=== PATIENT | male | born 2000 | race African-American/Black ===

== ENCOUNTER 2023-09-26 12:26 | Outpatient (REF) | payer MEDICAID, SELFPAY ==
[2023-09-30 14:03] LABS: RPR Rapid Plasma Reagin NON-REACTIVE (NON-REACTIVE)
== END 2023-09-26 12:27 | disposition home or self-care (01) ==
LOC: HO.HHCL 12:26
PROVIDERS: Visit Provider Family Medicine
DX: Z00.00 Encounter for general adult medical examination without abnormal findings (principal); Z11.3 Encounter for screening for infections with a predominantly sexual mode of transmission; Z11.59 Encounter for screening for other viral diseases; Z13.220 Encounter for screening for lipoid disorders; Z13.29 Encounter for screening for other suspected endocrine disorder; Z13.1 Encounter for screening for diabetes mellitus
CPT/HCPCS: 0353U; 36415; 80048; 80061; 80076; 82306; 83036; 84439; 84443; 85027; 86592; 86706; 86803; 87340; 87389

== ENCOUNTER 2024-05-29 13:57 | Outpatient (REF) | payer MEDICAID, SELFPAY ==
[2024-05-29 16:23] LABS: Hematocrit 48.3 % (42.0-52.0); Mean Corpuscular HGB Conc 31.1 g/dl (31.0-36.0); Mean Corpuscular Hemoglobin 25.5 pg (27.0-33.0); Mean Corpuscular Volume 82.1 fL (80.0-98.0); Mean Platelet Volume 10.2 fL (9.4-12.4); Platelet Count 269 X10*3/uL (160-400); Red Blood Count 5.88 X10*6/uL (4.60-5.80); Red Cell Distribution Width 14.6 % (11.0-16.0); White Blood Count 5.8 X10*3/uL (4.8-10.8)
[2024-05-29 16:42] LABS: Anion Gap 11 (12-20)
[2024-05-29 16:46] LABS: Alanine Aminotransferase 31 U/L (0-40); Albumin Level 4.1 g/dL (3.5-5.0); Alkaline Phosphatase 78 U/L (39-117); Aspartate Amino Transferase 25 U/L (5-37); Bilirubin Direct 0.1 mg/dL (0.0-0.5); Bilirubin Total 0.3 mg/dL (0.0-1.0); Blood Urea Nitrogen 8 mg/dL (9-16); Calcium 9.6 mg/dL (8.4-10.2); Carbon Dioxide 25 mmol/L (22-29); Chloride 105 mmol/L (96-108); Cholesterol 142 mg/dL (<200); Estimated Glomerular Filt Rate > 60; Glucose Random 106 mg/dL (60-115); HDL Cholesterol 40 mg/dL (>40); LDL Cholesterol Calculated 72 mg/dL (<100); Lipase 19 U/L (8-78); Sodium 137 mmol/L (135-145); Total Protein 7.8 g/dL (6.5-8.0); Triglycerides 153 mg/dL (<150)
[2024-05-29 16:58] LABS: Amylase 74 U/L (28-100); Estimated Average Glucose 117 mg/dL; Free T4 (Free Thyroxine) 0.85 ng/dL (0.71-1.85); Hemoglobin A1c % 5.7 % (<6.0); Thyroid Stimulating Hormone 2.04 uIU/mL (0.32-4.0); Vitamin D 25-OH Total 36.1 ng/mL (>30)
[2024-05-30 07:28] LABS: Hepatitis A Antibody IgG REACTIVE (Nonreactive); ~Hepatitis A Antibody IgG 11.77 S/CO (0.00-0.99)
[2024-05-30 07:35] LABS: HBc Num1 0.15 S/CO (0.00-0.79); HBsAGNum1 0.25 S/CO (0.00-0.99); HIV AB/AG Nonreactive (Nonreactive); HIV Num 1 0.07 S/CO (0.00-0.99); Hepatitis B Core Antibody Nonreactive (Nonreactive); Hepatitis B Surface Antigen Negative (Negative); ~HepC Num1 0.15 S/CO (0.00-0.79); ~Hepatitis C Antibody Nonreactive (Nonreactive)
[2024-05-30 08:34] LABS: HBS Num2 8.79 mIU/mL (0-7.99); HBS Num3 9.49 mIU/mL (0-7.99); ~Hepatitis B Surface Antibody GRAYZONE (Nonreactive)
[2024-06-01 12:39] LABS: RPR Rapid Plasma Reagin NON-REACTIVE (NON-REACTIVE)
== END 2024-05-29 13:58 | disposition home or self-care (01) ==
LOC: HO.HHCL 13:57
PROVIDERS: Visit Provider Family Medicine
DX: R10.9 Unspecified abdominal pain (principal); R12 Heartburn
CPT/HCPCS: 36415; 80048; 80061; 80076; 82150; 82306; 83036; 83690; 84439; 84443; 85027; 86592; 86704; 86706; 86708; 86803; 87340; 87389

== ENCOUNTER 2025-01-15 11:39 | Outpatient (REF) | payer MEDICAID, SELFPAY ==
--- OUTSIDE RECORDS SUMMARY | 2025-01-15 12:36 | XMS_ITS | Encounter Summary ---
Author Organization [employer] Address [address] [facility] 7t [place] [address] Care Team Providers Care Traveling Sales Representative Name Role Phone KarinaMarilia Primary Care Provider +1 [phone] James Mcghee Unavailable Unavailable Encounter Details Date Type Department Care Team (Latest Contact Info) Description 01/15/2025 Travel Social History Tobacco Use Types Packs/Day Years Used Date Smoking Tobacco: Never Passive Smoke Exposure: Never Smokeless Tobacco: Never Alcohol Use Standard Drinks/Week Comments Never 0 (1 standard drink = 0.6 oz pur e alcohol) Depression Answer Date Recorded Patient Health Questionnaire-9 Score 5 01/15/2025 Patient Health Questionnaire-9 Score 5 01/15/2025 Last PHQ-9: Questionnaire Data Not on file 0 01/15/2025 Housing Stability Answer Date Recorded What is your housing situation today? I have cristel sing 01/05/[address] you li ve. Do you have problems with any of the following? None of the above 01/05/2025 Food Insecurity Answer Date Recorded Within the past 12 months, y ou worried that your food would run out before you got money to buy more: Never True 01/05/2025 Within the past 12 months,th e food you bought just didn't last and you didn't have enough money to get more: Never True Transportation Answer Date Recorded In the past 12 months, has l ack of transportation kept you from medical appts, meetings, work or from getting things needed for daily living? Yes, it has kept me from medical appointments or getting medications.;Yes, it has kept me from non-medical meetings, work, or getting things that I need 01/15/2025 Utilities Answer Date Recorded In the past 12 months, has t he electric, gas, oil or water company threatened to shut off services in your home? No 01/05/2025 Depression Answer Date Recorded Patient Health Questionnaire-2 Score 0 01/15/2025 Internet Access Answer Date Recorded Internet Access Q1 Yes 01/05/2025 Internet Access Q2 Not on file 01/05/2025 Sex and Gender Information Value Date Recorded Sex Assigned at Male 07/23/2022 10:32 AM EDT Legal Sex Male 10:32 AM EDT Gender Identity Male 07/23/2022 10:32 AM EDT Sexual Orientation Straight 07/23/2022 10 :32 AM EDT documented as of this encounter Plan of Treatment Upcoming Encounters Date Type Department Care Team (Late st Contact Info) Description 03/02/2025 1:30 PM EDT Office Visit [facility] ADULT DENTAL [address] [place] [address] Terrance Medina DDS [address] [place] [address] 03/08/2025 1:00 PM EDT Office Visit [facility] ADULT DENTAL [address] [place] [address] RobertNatalioClara [address] [place] [address] documented as of this encounter Visit Diagnoses Not on filedocumented in this encounter Additional Health Concerns Assessment Noted Time PHQ-9 Depression Total Score: 5 01/16/20 11:39 AM EDT documented as of this encounter Care Teams Traveling Sales Representative Relationship Specialty Start Date End Date Marilia Collins DO [address] [place] [address] PCP - General Family Medicine 09/20/17 James Mcghee FNP [address] [place] [address] Nurse Practitioner Family Medicine 08/19/23 documented as of this encounter
--- OUTSIDE RECORDS SUMMARY | 2025-01-15 12:36 | XMS_ITS | Encounter Summary ---
Author Organization [employer] Address [address] [facility] 7t [place] [address] Care Team Providers Care Metal Neutralizer Name Role Phone Karina Marilia PULLIAM Primary Care Provider + [phone] James Mcghee Unavailable Unavailable Reason for Visit * Reason Comments Med Refill Encounter Details Date Type Department Care Team (Late st Contact Info) Description 01/13/2025 Refill [facility] [address] [place] [address] Mary Gray MD [address] [place] [address] Social History Tobacco Use Types Packs/Day Years [...] your housing situation today? I have cristel penaloza 01/05/[address] you li [...] Description 03/02/2025 1:30 PM EDT Office Visit [facility] ADULT DENTAL [address] [place] [address] Terrance Medina DDS [address] [place] [address] 03/08/2025 1:00 PM EDT Office Visit [facility] ADULT DENT[facility] [address] [place] [address] Clara Jones [address] [place] [address] documented as of this encounter Visit Diagnoses Not on filedocumented in this encounter Additional Health Concerns Assessment Noted Time PHQ-9 Depression Total Score: 9 07/02/20 24 12:07 PM EDT documented as of this encounter Care Teams Metal Neutralizer Relationship Specialty Start Date End Date Marilia Collins DO [address] [place] [address] PCP - General Family Medicine 12/29/17 James Mcghee FNP [address] [place] [address] Nurse Practitioner Family Medicine 08/19/23 documented as of this encounter
--- OUTSIDE RECORDS SUMMARY | 2025-01-15 12:37 | XMS_ITS | Encounter Summary ---
Author Organization [employer] Address [address] [facility] 7 [place] [address] Care Team Providers Care Communications Planner Name Role Phone Marilia Collins DO Primary Care Provider [phone] [phone] James Mcghee Unavailable Unavailable Reason for Visit * Reason Onset Date Comments Appointment Request 06/05/2024 Encounter Details Date Type Department Care Team ([facility] st Contact Info) Description 06/05/2024 Telephone [facility] MED[facility]INE [address] [place], [place] [phone] Marilia Collins DO [address] [place], [place] [phone] Appointment Request Social History Tobacco Use Types Packs/Day Years Used Date Smoking Tobacco: Never Passive Smoke Exposure: Never Smokeless Tobacco: Never Alcohol Use Standard Drinks/Week Comments Never 0 (1 standard drink = 0.6 oz pur e alcohol) Depression Answer Date Recorded Patient Health Questionnaire-9 Score 14 06/03/2024 Patient Health Questionnaire-9 Score 14 06/03/2024 Last PHQ-9: Questionnaire Data Not on file 0 06/03/2024 Housing Stability Answer Date Recorded What is your housing situation today? I have cristeljameson penaloza 09/26/[address] you li ve. Do you have problems with any of the following? None of the above 09/26/2023 Food Insecurity Answer Date Recorded Within the past 12 months, y ou worried that your food would run out before you got money to buy more: Never True 01/02/2024 Within the past 12 months,th e food you bought just didn't last and you didn't have enough money to get more: Never True 07/2024 Transportation Answer Date Recorded In the past 12 months, has l ack of transportation kept you from medical appts, meetings, work or from getting things needed for daily living? No 09/26/2023 Utilities Answer Date Recorded In the past 12 months, has t he electric, gas, oil or water company threatened to shut off services in your home? No 09/26/2023 Depression Answer Date Recorded Patient Health Questionnaire-2 Score 4 06/03/2024 Sex and Gender Information Value Date Recorded Sex Assigned at Male 07/23/2022 10:32 AM EDT Legal Sex Male 10:32 AM EDT Gender Identity Male 07/23/2022 10:32 AM EDT Sexual Orientation Straight 07/23/2022 10 :32 AM EDT documented as of this encounter Miscellaneous Notes * Telephone Encounter - Doc Zaragoza - 06/05/2024 3:37 PM EDT Tc from patient calling to reschedule missed appt from 06/05 documented in this encounter Plan of Treatment Upcoming Encounters Date Type Department Care Team (Late st Contact Info) Description 03/02/2025 1:30 PM EDT Office Visit [facility] ADULT DENTAL [address] [place] [address] Terrance Medina DDS [address] [place] [address] 03/08/2025 1:00 PM EDT Office Visit [facility] ADULT DENTAL [address] [place] [address] Clara Jones [address] [place] [address] documented as of this encounter Visit Diagnoses Not on filedocumented in this encounter Additional Health Concerns Assessment Noted Time PHQ-9 Depression Total Score: 14 024 11:14 AM EDT documented as of this encounter Care Teams Communications Planner Relationship Specialty Start Date End Date Marilia Collins DO [address] [place] [address] PCP - General Family Medicine 09/20/17 James Mcghee FNP [address] [place], [place] [address] [address] Nurse Practitioner Family Medicine 08/19/23 documented as of this encounter
--- OUTSIDE RECORDS SUMMARY | 2025-01-15 12:37 | XMS_ITS | Encounter Summary ---
Author Organization [employer] Address [address] [facility] 7 [place] [address] Care Team Providers Care Corporate Scheduler Name Role Phone Marilia Collins DO Primary Care Provider +1 [phone] James Mcghee Unavailable Unavailable Reason for Visit * Reason Onset Date Comments PT-1 09/28/2024 Encounter Details Date Type Department Care Team ([facility] st Contact Info) Description 09/28/2024 Telephone [facility] MEDICINE [address] [place], [place] [phone] Marilia Collins DO [address] [place], [place] [phone] PT-1 Social History Tobacco Use Types Packs/Day Years Used Date Smoking Tobacco: Never Passive Smoke Exposure: Never Smokeless Tobacco: Never Alcohol Use Standard Drinks/Week Comments Never 0 (1 standard drink = 0.6 oz pur e alcohol) Depression Answer Date Recorded Patient Health Questionnaire-9 Score 9 07/02/2024 Patient Health Questionnaire-9 Score 9 07/02/2024 Last PHQ-9: Questionnaire Data Not on file 1 Housing Stability Answer Date Recorded What is your housing situation today? I have cristel penaloza 09/26/[address] you [...] Answer Date Recorded Patient Health Questionnaire-2 Score 2 07/02/2024 Sex and Gender Information Value Date Recorded Sex Assigned at Male 07/23/2022 10:32 AM EDT Legal Sex Male 10:32 AM EDT Gender Identity Male 07/23/2022 10:32 AM EDT Sexual Orientation Straight 07/23/2022 10 :32 AM EDT documented as of this encounter Miscellaneous Notes * Telephone Encounter - Johnathon Vaughan - 09/28/2024 2:43 PM EST 1 Patient calling requesting PT1 Home Address verified: Y/N: Yes Provider name or facility name: [facility] Radiology Facility Address: [address] [place] [address] Escort needed: Y/N: No Do you have a wheelchair: Y/N: No If yes- Manual or electric: no Visits: 3 2 Patient calling requesting PT1 Home Address verified: Y/N: Yes Provider name or facility name: [facility] Facility Address: [address] [facility] [address] Escort needed: Y/N: No Do you have a wheelchair: Y/N: No If yes- Manual or electric: no Visits: 3 documented in this encounter Plan of Treatment Upcoming Encounters Date Type Department Care Team (Late st Contact Info) Description 03/02/2025 1:30 PM EDT Office Visit [facility] ADULT DENTAL [address] [place] [address] Terrance Medina DDS [address] [place] [address] 03/08/2025 1:00 PM EDT Office Visit [facility] ADULT DENTAL [address] [place] [address] Clara Jones [address] [place] [address] documented as of this encounter Visit Diagnoses Not on filedocumented in this encounter Additional Health Concerns Assessment Noted Time PHQ-9 Depression Total Score: 9 07/02/20 24 12:07 PM EDT documented as of this encounter Care Teams Corporate Scheduler Relationship Specialty Start Date End Date Marilia Collins DO [address] [place] [address] PCP - General Family Medicine 09/20/17 James Mcghee FNP [address] [place] [address] Nurse Practitioner Family Medicine 08/19/23 documented as of this encounter
--- OUTSIDE RECORDS SUMMARY | 2025-01-15 12:37 | XMS_ITS | Encounter Summary ---
Author Organization [employer] Address [address] [facility] 7 [place] [address] Care Team Providers Care Wood Ski Maker Name Role Phone Marilia Collins DO Primary Care Provider +1 [phone] James Mcghee Unavailable Unavailable Reason for Visit * Reason Onset Date Comments Nurse Triage 10/14/2024 ER Follow-up 10/14/2024 Encounter Details Date Type Department Care Team ([facility] st Contact Info) Description 10/14/2024 Telephone [facility] MEDICINE [address] [place], [place] [phone] Marilia Collins DO [address] [place], [place] [phone] Nurse Triage; ER Follow-up Social History Tobacco Use Types Packs/Day Years [...] encounter Miscellaneous Notes * Telephone Encounter - Akila Ott RN - 10/14/2024 3:10 PM EST Triage call Pt reports cough, nasal congestion and drainage which is yellow color. Pt family memberis heard coughing also in background during call. Pt was seen in [facility] ED 10/07/24 (report is on the chart) with dx of nasal congestion, cough, URI. Neg for strep, pneumonia, and other virus. Pt continues to report throat is sore from cough. Home care is reviewed especially need for hydration- 64oz liquid daily including warm drinks like decaf tea, broth. ASK apt with DR. Garza 10/15/24 @ 230pm Pt agrees with disposition. Insurance is verified as active prior to booking. Protocol Used: Cough (Adult) Protocol-Based Disposition: See in Office or Video Visit Today or Tomorrow Video visit not offered Positive Triage Question: * Patient wants to be seen * All higher-acuity triage questions were negative Care Advice Discussed: * Reassurance and Education - Cough * Cough Medicines * Coughing Spells * Prevent Dehydration * Humidifier * Reasons To Call Back - Difficulty breathing - Cough lasts more than 3 weeks - Fever lasts more than 3 days - You become worse * Telephone Encounter - Aleksandar Douglas - 10/14/2024 2:46 PM EST Patient calling to report ED visit on : Date: 10/07/24 [facility]: [facility] Seen for: Throat infection Symptomatic Yes Symptom: Chest Congestion Outcome: Schedule an appointment to be seen within 24 hours Reason: Caller denied all higher acuity questions Please contact pt at [phone]. documented in this encounter Plan of Treatment Upcoming Encounters Date Type Department Care Team (Late st Contact Info) Description 03/02/2025 1:30 PM EDT Office Visit [facility] ADULT DENTAL [address] [place] [address] Terrance Medina DDS [address] [place] [address] 03/08/2025 1:00 PM EDT Office Visit [facility] ADULT DENTAL [address] [place] [address] RobertClara [address] [place] [address] documented as of this encounter Visit Diagnoses Not on filedocumented in this encounter Additional Health Concerns Assessment Noted Time PHQ-9 Depression Total Score: 9 07/02/20 24 12:07 PM EDT documented as of this encounter Care Teams Wood Ski Maker Relationship Specialty Start Date End Date Marilia Collins DO [address] [place] [address] PCP - General Family Medicine 09/20/17 James Mcghee FNP [address] [place] [address] Nurse Practitioner Family Medicine 08/19/23 documented as of this encounter
--- OUTSIDE RECORDS SUMMARY | 2025-01-15 12:37 | XMS_ITS | Encounter Summary ---
Author Organization [employer] Address [address] [facility] 7 [place] [address] Care Team Providers Care Shoe Lining Fitter Name Role Phone Marilia Collins DO Primary Care Provider +1- [phone] James Mcghee Unavailable Unavailable Encounter Details Date Type Department Care Team (Latest Contact Info) Description 01/23/2022 Abstract [facility] CONVERSIONS Dental, Provider, DDS Social History Tobacco Use Types Packs/Day Years Used Date Smoking Tobacco: Never Assessed Sex and Gender Information Value Date Recorded Sex Assigned at Male 07/23/2022 10:32 AM EDT Legal Sex Male 10:32 AM EDT Gender Identity Male 07/23/2022 10:32 AM EDT Sexual Orientation Straight 07/23/2022 10 :32 AM EDT documented as of this encounter Plan of Treatment Upcoming Encounters Date Type Department Care Team (Late st Contact Info) Description 03/02/2025 1:30 PM EDT Office Visit [facility] ADULT DENTAL [address] [place] [address] Terrance Medina DDS [address] [place] [address] 03/08/2025 1:00 PM EDT Office Visit [facility] ADULT DENTAL [address] [place] [address] Clara Jones [address] [place] [address] documented as of this encounter Visit Diagnoses Not on filedocumented in this encounter Care Teams Shoe Lining Fitter Relationship Specialty Start Date End Date Marilia Collins DO [address] [place] [address] PCP - General Family Medicine 09/20/17 James Mcghee FNP [address] [place] [address] Nurse Practitioner Family Medicine 08/19/23 documented as of this encounter
--- OUTSIDE RECORDS SUMMARY | 2025-01-15 12:37 | XMS_ITS | Encounter Summary ---
Author Organization [employer] Address [address] [facility] 7 [place] [address] Care Team Providers Care Director Digital Analytics Name Role Phone Marilia Collins DO Primary Care Provider +1- [phone] James Mcghee Unavailable Unavailable Reason for Visit * Reason Onset Date Comments Med Refill 08/05/2023 Appointment 08/05/2023 - [facility] Encounter Details Date Type Department Care Team (Late st Contact Info) Description 08/05/2023 Refill [facility] MEDICINE [address] [place], [place] [phone] Marilia Collins DO [address] [place], [place] [phone] Attention deficit hyperactivity disorder (ADHD), unspecified ADHD type Social History Tobacco Use Types Packs/Day Years Used Date Smoking Tobacco: Never Passive Smoke Exposure: Never Smokeless Tobacco: Never Alcohol Use Standard Drinks/Week Comments Never 0 (1 standard drink = 0.6 oz pur e alcohol) Depression Answer Date Recorded Patient Health Questionnaire-9 Score 7 04/09/2023 Depression Answer Date Recorded Patient Health Questionnaire-2 Score 2 04/09/2023 Sex and Gender Information Value Date Recorded Sex Assigned at Male 07/23/2022 10:32 AM EDT Legal Sex Male 10:32 AM EDT Gender Identity Male 07/23/2022 10:32 AM EDT Sexual Orientation Straight 07/23/2022 10 :32 AM EDT documented as of this encounter Miscellaneous Notes * Telephone Encounter - Mary Hatch MA - 08/08/2023 11:40 AM EST T/C placed to pt regarding previous message from Prescriber. Pt agrees to re- schedule his apt and he agrees to compliance with his follow up apt as well. His next apt has been schedule for 08/26/23. * Telephone Encounter - Ricardo Ledesma - 08/05/2023 3:09 PM EST Tc from pt requesting med refill on dexmethylphenidate XR (Focalin XR) 15 MG 24 hr capsule Please sent to [facility]/pharmacy #[id number] - [place], [place] - [address] [place] [address] NEXT TO ANITA'Nadeem documented in this encounter Plan of Treatment Upcoming Encounters Date Type Department Care Team (Late st Contact Info) Description 03/02/2025 1:30 PM EDT Office Visit [facility] ADULT DENTAL [address] [place] [address] Terrance Medina DDS [address] [place] [address] 03/08/2025 1:00 PM EDT Office Visit [facility] ADULT DENTAL [address] [place] [address] Clara Jones [address] [place] [address] documented as of this encounter Visit Diagnoses Diagnosis Attention deficit hyperactivity disorder (ADHD), unspecified ADHD type documented in this encounter Additional Health Concerns Assessment Noted Time PHQ-9 Depression Total Score: 7 04/09/20 3:02 PM EDT documented as of this encounter Care Teams Director Digital Analytics Relationship Specialty Start Date End Date Marilia Collins DO [address] [place] [address] PCP - General Family Medicine 09/20/17 James Mcghee FNP [address] [place] [address] Nurse Practitioner Family Medicine 08/19/23 documented as of this encounter
--- OUTSIDE RECORDS SUMMARY | 2025-01-15 12:37 | XMS_ITS | Encounter Summary ---
Author Organization [employer] Address [address] [facility] 7 [place] [address] Care Team Providers Care Lcac Radar Operator/Navigator Name Role Phone Marilia Collins DO Primary Care Provider +1- [phone] James Mcghee Unavailable Unavailable Encounter Details Date Type Department Care Team (Latest Contact Info) Description 12/07/2020 Abstract [facility] CONVERSIONS Dental, Provider, DDS Social History Tobacco [...] Description 03/02/2025 1:30 PM EDT Office Visit [facility] ADULT DENTAL [address] [place] [address] Terrance Medina DDS [address] [place] [address] 03/08/2025 1:00 PM EDT Office Visit [facility] ADULT DENTAL [address] [place] [address] Clara Jones [address] [place] [address] documented as of this encounter Visit Diagnoses Not on filedocumented in this encounter Care Teams Lcac Radar Operator/Navigator Relationship Specialty Start Date End Date Marilia Collins DO [address] [place] [address] PCP - General Family Medicine 09/20/17 James Mcghee FNP [address] [place] [address] Nurse Practitioner Family Medicine 08/19/23 documented as of this encounter
--- OUTSIDE RECORDS SUMMARY | 2025-01-15 12:37 | XMS_ITS | Encounter Summary ---
Author Organization [employer] Address [address] [facility] 7 [place] [address] Care Team Providers Care Wildlife Forensic Geneticist Name Role Phone Marilia Collins DO Primary Care Provider James Mcghee Unavailable Unavailable Encounter Details Date Type Department Care Team (Latest Contact Info) Description 05/20/2019 Abstract [facility] CONVERSIONS Dental, Provider, DDS Social History [...] Description 03/02/2025 1:30 PM EDT Office Visit [facility] ADULT DENTAL [address] [place] [address] Terrance Medina DDS [address] [place] [address] 03/08/2025 1:00 PM EDT Office Visit [facility] ADULT DENTAL [address] [place] [address] Clara Jones [address] [place] [address] documented as of this encounter Visit Diagnoses Not on filedocumented in this encounter Care Teams Wildlife Forensic Geneticist Relationship Specialty Start Date End Date Marilia Collins DO [address] [place] [address] PCP - General Family Medicine 09/20/17 James Mcghee FNP [address] [place] [address] Nurse Practitioner Family Medicine 08/19/23 documented as of this encounter
--- OUTSIDE RECORDS SUMMARY | 2025-01-15 12:37 | XMS_ITS | Encounter Summary ---
Author Organization [employer] Address [address] [place] [address] Care Team Providers Care [employer]el Fl[employer] Trimmer Name Role Phone Marilia Collins DO Primary Care Provider [phone] James Mcghee Unavailable Unavailable Encounter Details Date Type Department Care Team (Latest Contact Info) Description 01/15/2025 10:30 AM EDT Office Visit [facility] [address] [place] [address] Marilia Collins DO [address] [place] [address] Routine history and physical examination of adult (Primary Dx); Major depression, recurrent, chronic (CMS/HCC); ADHD (attention deficit hyperactivity disorder), combined type; Stomach pain; Heartburn; Seasonal allergic rhinitis, unspecified trigger; BMI 36.0-36.9,adult Social History Tobacco Use Types Packs/Day Years [...] AM EDT documented as of this encounter Last Filed Vital Signs Vital Sign Reading Time Taken Comments Blood Pressure 110/76 01/15/2025 10:45 AM EDT Pulse 90 01/15/2025 10:45 AM EDT Temperature 36.7 ??C (98.1 ??F) 01/15/2025 10:45 AM E DT Respiratory Rate 21 01/15/2025 10:45 AM EDT Oxygen Saturation 98% 01/15/2025 10:45 AM EDT Inhaled Oxygen Concentration - - Weight 118 kg (261 lb) 01/15/2025 10:45 AM EDT Height 180.3 cm (5' 11 ) 01/15/2025 10:45 AM EDT Body Mass Index 36.4 01/15/2025 10:45 AM EDT documented in this encounter Plan of Treatment Upcoming Encounters Date Type Department Care Team ([facility] st Contact Info) Description 03/02/2025 1:30 PM EDT Office Visit [facility] [address] [place] [address] Terrance Medina, DDS [address] [place] [address] 03/08/2025 1:00 PM EDT Office Visit [facility] [address] [place] [address] Natalio Jonesaris [address] [place] [address] Scheduled Orders Name Type Priority Associated Diagnoses Orde r Schedule T4, Free Lab Routine Routine history and physical examination of adult Major depression, recurrent, chronic (CMS/HCC) ADHD (attention deficit hyperactivity disorder), combined type Stomach pain Heartburn Seasonal allergic rhinitis, unspecified trigger BMI 36.0-36.9,adult Expected: 01/15/2025 (Approximate), Expires: 01/15/2026 Lipid Panel, Standard Lab Routine Routine history and physical examination of adult Major depression, recurrent, chronic (CMS/HCC) ADHD (attention deficit hyperactivity disorder), combined type Stomach pain Heartburn Seasonal allergic rhinitis, unspecified trigger BMI 36.0-36.9,adult Expected: 01/15/2025 (Approximate), Expires: 01/15/2026 TSH Lab Routine Routine history and physical examination of adult Major depression, recurrent, chronic (CMS/HCC) ADHD (attention deficit hyperactivity disorder), combined type Stomach pain Heartburn Seasonal allergic rhinitis, unspecified trigger BMI 36.0-36.9,adult Expected: 01/15/2025 (Approximate), Expires: 01/15/2026 Vitamin D, 25-Hydroxy, Total, Immunoassay Lab Routine Routine history and physical examination of adult Major depression, recurrent, chronic (CMS/HCC) ADHD (attention deficit hyperactivity disorder), combined type Stomach pain Heartburn Seasonal allergic rhinitis, unspecified trigger BMI 36.0-36.9,adult Expected: 01/15/2025 (Approximate), Expires: 01/15/2026 Hepatic Function Panel Lab Routine Routine history and physical examination of adult Major depression, recurrent, chronic (CMS/HCC) ADHD (attention deficit hyperactivity disorder), combined type Stomach pain Heartburn Seasonal allergic rhinitis, unspecified trigger BMI 36.0-36.9,adult Expected: 01/15/2025 (Approximate), Expires: 01/15/2026 Hemoglobin A1c Lab Routine Routine history and physical examination of adult Major depression, recurrent, chronic (CMS/HCC) ADHD (attention deficit hyperactivity disorder), combined type Stomach pain Heartburn Seasonal allergic rhinitis, unspecified trigger BMI 36.0-36.9,adult Expected: 01/15/2025 (Approximate), Expires: 01/15/2026 CBC Lab Routine Routine history and physical examination of adult Major depression, recurrent, chronic (CMS/HCC) ADHD (attention deficit hyperactivity disorder), combined type Stomach pain Heartburn Seasonal allergic rhinitis, unspecified trigger BMI 36.0-36.9,adult Expected: 01/15/2025, Expires: 01/15/2026 Basic Metabolic Panel Lab Routine Routine history and physical examination of adult Major depression, recurrent, chronic (CMS/HCC) ADHD (attention deficit hyperactivity disorder), combined type Stomach pain Heartburn Seasonal allergic rhinitis, unspecified trigger BMI 36.0-36.9,adult Expected: 01/15/2025 (Approximate), Expires: 01/15/2026 Hepatitis B surface antigen, EIA Lab Routine Routine history and physical examination of adult Major depression, recurrent, chronic (CMS/HCC) ADHD (attention deficit hyperactivity disorder), combined type Stomach pain Heartburn Seasonal allergic rhinitis, unspecified trigger BMI 36.0-36.9,adult Expected: 01/15/2025 (Approximate), Expires: 01/15/2026 Chlamydia/N. Gonorrhoeae RNA, TMA, Urogenitial Microbiology Routine Routine history and physical examination of adult Major depression, recurrent, chronic (CMS/HCC) ADHD (attention deficit hyperactivity disorder), combined type Stomach pain Heartburn Seasonal allergic rhinitis, unspecified trigger BMI 36.0-36.9,adult Ordered: 01/15/2025 HIV-1/2 Antigen and Antibodies, Fourth Generation, with Reflexes Lab Routine Routine history and physical examination of adult Major depression, recurrent, chronic (CMS/HCC) ADHD (attention deficit hyperactivity disorder), combined type Stomach pain Heartburn Seasonal allergic rhinitis, unspecified trigger BMI 36.0-36.9,adult Expected: 01/15/2025 (Approximate), Expires: 01/15/2026 Hepatitis C Antibody with Reflex to HCV, RNA, Quantitative, Real-Time PCR Lab Routine Routine history and physical examination of adult Major depression, recurrent, chronic (CMS/HCC) ADHD (attention deficit hyperactivity disorder), combined type Stomach pain Heartburn Seasonal allergic rhinitis, unspecified trigger BMI 36.0-36.9,adult Expected: 01/15/2025, Expires: 01/15/2026 RPR (Monitor) with Reflex to??Titer Lab Routine Routine history and physical examination of adult Major depression, recurrent, chronic (CMS/HCC) ADHD (attention deficit hyperactivity disorder), combined type Stomach pain Heartburn Seasonal allergic rhinitis, unspecified trigger BMI 36.0-36.9,adult Expected: 01/15/2025, Expires: 01/15/2026 Hepatitis B Surface Antibody, Qualitative Lab Routine Routine history and physical examination of adult Major depression, recurrent, chronic (CMS/HCC) ADHD (attention deficit hyperactivity disorder), combined type Stomach pain Heartburn Seasonal allergic rhinitis, unspecified trigger BMI 36.0-36.9,adult Expected: 01/15/2025 (Approximate), Expires: 01/15/2026 Hepatitis A Antibody, Total Lab Routine Routine history and physical examination of adult Major depression, recurrent, chronic (CMS/HCC) ADHD (attention deficit hyperactivity disorder), combined type Stomach pain Heartburn Seasonal allergic rhinitis, unspecified trigger BMI 36.0-36.9,adult Expected: 01/15/2025 (Approximate), Expires: 01/15/2026 Hepatitis B Core Antibody, Total Lab Routine Routine history and physical examination of adult Major depression, recurrent, chronic (CMS/HCC) ADHD (attention deficit hyperactivity disorder), combined type Stomach pain Heartburn Seasonal allergic rhinitis, unspecified trigger BMI 36.0-36.9,adult Expected: 01/15/2025 (Approximate), Expires: 01/15/2026 documented as of this encounter Visit Diagnoses Diagnosis Routine history and physical examination of adult- Primary Major depression, recurrent, chronic (CMS/HCC) ADHD (attention deficit hyperactivity disorder), combined type Attention deficit disorder with hyperactivity Stomach pain Dyspepsia and other specified disorders of function of stomach Heartburn Seasonal allergic rhinitis, unspecified trigger BMI 36.0-36.9,adult documented in this encounter Additional Health Concerns Assessment Noted Time PHQ-9 Depression Total Score: 5 01/16/20 25 11:39 AM EDT documented as of this encounter Care Teams [employer] Trimmer Relationship Specialty Start Date End Date Marilia Collins DO [address] [place] [address] PCP - General Family Medicine 09/20/17 James Mcghee FNP [address] [place] [address] Nurse Practitioner Family Medicine 08/19/23 documented as of this encounter
--- OUTSIDE RECORDS SUMMARY | 2025-01-15 12:37 | XMS_ITS | Clinical Summary ---
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 [address] [place] [address] Nurse Practitioner Family Medicine 08/19/23
[2025-01-15 13:36] LABS: Hematocrit 48.9 % (42.0-52.0); Hemoglobin 15.8 g/dl (14.0-18.0); Mean Corpuscular HGB Conc 32.3 g/dl (31.0-36.0); Mean Corpuscular Hemoglobin 25.7 pg (27.0-33.0); Mean Corpuscular Volume 79.6 fL (80.0-98.0); Mean Platelet Volume 10.2 fL (9.4-12.4); Platelet Count 312 X10*3/uL (160-400); Red Blood Count 6.14 X10*6/uL (4.60-5.80); Red Cell Distribution Width 15.7 % (11.0-16.0); White Blood Count 6.6 X10*3/uL (4.8-10.8)
[2025-01-15 13:45] LABS: Estimated Average Glucose 111 mg/dL; Hemoglobin A1C 152.3494 umol/L; Hemoglobin A1c % 5.5 % (<6.0); Total Hemoglobin (HGBA1C) 4119.8588 umol/L
[2025-01-15 13:59] LABS: Alanine Aminotransferase 30 U/L (0-40); Albumin Level 4.3 g/dL (3.5-5.0); Alkaline Phosphatase 87 U/L (39-117); Anion Gap 9 (12-20); Aspartate Amino Transferase 28 U/L (5-37); Bilirubin Direct 0.3 mg/dL (0.0-0.5); Bilirubin Total 0.6 mg/dL (0.0-1.0); Blood Urea Nitrogen 9 mg/dL (9-16); Calcium 9.7 mg/dL (8.4-10.2); Carbon Dioxide 28 mmol/L (22-29); Chloride 104 mmol/L (96-108); Cholesterol 146 mg/dL (<200); Estimated Glomerular Filt Rate > 60; Glucose Random 89 mg/dL (60-115); HDL Cholesterol 46 mg/dL (>40); LDL Cholesterol Calculated 82 mg/dL (<100); Potassium 4.1 mmol/L (3.3-5.1); Sodium 137 mmol/L (135-145); Total Protein 8.1 g/dL (6.5-8.0); Triglycerides 92 mg/dL (<150)
[2025-01-15 14:05] LABS: HBS Num1 8.11 mIU/mL (0-7.99); HBc Num1 0.17 S/CO (0.00-0.79); HBsAGNum1 0.31 S/CO (0.00-0.99); HIV AB/AG Nonreactive (Nonreactive); HIV Num 1 0.06 S/CO (0.00-0.99); Hepatitis B Core Antibody Nonreactive (Nonreactive); Hepatitis B Surface Antigen Negative (Negative); ~HepC Num1 0.13 S/CO (0.00-0.79); ~Hepatitis C Antibody Nonreactive (Nonreactive)
[2025-01-15 14:19] LABS: Thyroid Stimulating Hormone 1.25 uIU/mL (0.32-4.0); Vitamin D 25-OH Total 16.4 ng/mL (>30)
[2025-01-15 14:40] LABS: HBS Num2 7.32 mIU/mL (0-7.99); ~Hepatitis B Surface Antibody NONREACTIVE (Nonreactive)
[2025-01-15 14:47] LABS: CT PCR NOT DETECTED (Not Detect.); NG PCR NOT DETECTED (Not Detect.)
[2025-01-17 17:14] LABS: RPR Rapid Plasma Reagin NON-REACTIVE (NON-REACTIVE)
[2025-01-19 07:46] LABS: Hepatitis A Antibody IgG REACTIVE (Nonreactive); ~Hepatitis A Antibody IgG 10.12 S/CO (0.00-0.99)
== END 2025-01-15 11:40 | disposition home or self-care (01) ==
LOC: HO.HHCL 11:39
PROVIDERS: Visit Provider Family Medicine
DX: Z00.00 Encounter for general adult medical examination without abnormal findings (principal); F33.9 Major depressive disorder, recurrent, unspecified; F90.2 Attention-deficit hyperactivity disorder, combined type; R10.9 Unspecified abdominal pain; R12 Heartburn; J30.2 Other seasonal allergic rhinitis; Z68.36 Body mass index [BMI] 36.0-36.9, adult; Z11.3 Encounter for screening for infections with a predominantly sexual mode of transmission
CPT/HCPCS: 80048; 80061; 80076; 82306; 83036; 84439; 84443; 85027; 86592; 86704; 86706; 86708; 86803; 87340; 87389; 87491; 87591